=== PATIENT | male | born 1940 ===

== ENCOUNTER 2021-11-23 05:50 | Day surgery (SDC) | payer OTHER ==
[~2021-11-23] VITALS: Ht 165.1 cm; Wt 72.6 kg
[~2021-11-23 05:50] MED LIST: AMLODIPINE BESYL5 MG PO; ATORVASTATIN CA10 MG PO; COZAAR50 MG PO
== END 2021-11-23 12:35 | disposition home or self-care (01) ==
LOC: CIR.AMB 05:50
PROVIDERS: ATTEND Orthopaedic Surgery Hand Surgery
DX: M19.041 Primary osteoarthritis, right hand (principal); G56.01 Carpal tunnel syndrome, right upper limb; I10 Essential (primary) hypertension; E78.5 Hyperlipidemia, unspecified; N28.9 Disorder of kidney and ureter, unspecified; Z86.73 Personal history of transient ischemic attack (TIA), and cerebral infarction without residual deficits; Z20.822 Contact with and (suspected) exposure to COVID-19